=== PATIENT | female | born 1980 | race Two or more races ===

== ENCOUNTER → 2020-11-07 | Outpatient (CLI) | payer OTHER ==
[~2020-11-07] MED LIST: CILOXAN5 ML OTIC; KEFLEX500 MG PO; ZOFRAN8 MG PO; [UNRECOGNIZED DRUG - OTHER] PO
== END | disposition home or self-care (01) ==
LOC: OFIC 805 11-05 11:45
PROVIDERS: ATTEND Otolaryngology Otology & Neurotology
DX: H80.81 Other otosclerosis, right ear (principal); H90.0 Conductive hearing loss, bilateral

== ENCOUNTER 2020-11-19 11:15 | Outpatient (CLI) | payer OTHER | END 2020-11-19 11:25 | disposition home or self-care (01) | LOC: TOM → PPH VACUNA 11:15 | DX: Z23 Encounter for immunization (principal) ==

== ENCOUNTER → 2020-11-28 | Outpatient (CLI) | payer OTHER | END | disposition home or self-care (01) | LOC: OFIC 805 15:30 | PROVIDERS: ATTEND Otolaryngology Otology & Neurotology | DX: H80.81 Other otosclerosis, right ear (principal); H90.0 Conductive hearing loss, bilateral ==

== ENCOUNTER → 2021-01-02 | Outpatient (CLI) | payer OTHER | END | disposition home or self-care (01) | LOC: MAMO-SONO 12:45 | PROVIDERS: ATTEND Obstetrics & Gynecology | DX: N60.02 Solitary cyst of left breast (principal); N60.12 Diffuse cystic mastopathy of left breast; N60.11 Diffuse cystic mastopathy of right breast; Z12.31 Encounter for screening mammogram for malignant neoplasm of breast ==

== ENCOUNTER 2021-01-14 12:34 | Outpatient (CLI) | payer OTHER | END 2021-01-14 13:44 | disposition home or self-care (01) | LOC: OFIC 805 12:34 | PROVIDERS: ATTEND Otolaryngology Otology & Neurotology | DX: H80.82 Other otosclerosis, left ear (principal); H90.12 Conductive hearing loss, unilateral, left ear, with unrestricted hearing on the contralateral side ==